=== PATIENT | female | born 1990 | race Hispanic/Latino ===

== ENCOUNTER 2017-03-30 10:48 | Emergency (ER) | payer OTHER ==
[2017-03-30] MEDS: ACETAMINOPHEN TAB 650MG DOSE (2X325MG) PO (12:44)
[2017-03-30 13:34] LABS: CPK CREATINE PHOSPHOKINASE 146 U/L (26-192); TROPONIN I < 0.02 NG/ML (< 0.10)
[2017-03-30 13:47] LABS: CK-MB VALUE MASS 1.2 NG/ML (0.0-3.6); HCG, SERUM QUANTITATIVE 18202 MIU/ML; MB/CK RELATIVE INDEX 0.82 (< OR =4)
== END 2017-03-30 14:45 | disposition home or self-care (01) ==
LOC: M ED 10:48
DX: R07.89 Other chest pain (principal)
CPT/HCPCS: 93005